=== PATIENT | female | born 1935 | race Two or more races ===

== ENCOUNTER 2024-05-11 11:37 | Emergency (ER) | payer OTHER ==
[~2024-05-11] VITALS: Ht 162.6 cm; Wt 68.0 kg
[2024-05-11] MEDS ORDERED: ROSUVASTATIN CA10 MG PO (12:02)
[2024-05-11] MEDS ORDERED: WARFARIN SODIUM2 MG PO (12:02)
[2024-05-11] MEDS ORDERED: ATENOLOL25 MG PO (12:03)
[2024-05-11] MEDS ORDERED: TELMISARTAN80 MG PO (12:03)
[2024-05-11] MEDS ORDERED: AROMASIN25 MG PO (12:04)
[2024-05-11] MEDS ORDERED: GRALISE600 MG (12:04)
[2024-05-11] MEDS ORDERED: AMLODIPINE-OLM1 EACH PO (12:05)
[2024-05-11] MEDS ORDERED: KETOROLAC TROMETHAMINE 60 MG VIAL IM ONE (13:47)
== END 2024-05-11 15:44 | disposition home or self-care (01) ==
LOC: ER 11:37
DX: M25.519 Pain in unspecified shoulder (principal); G89.11 Acute pain due to trauma; I10 Essential (primary) hypertension; Z88.5 Allergy status to narcotic agent
CPT/HCPCS: 70450; 73030; 73521; 96372; 99284; J1885